=== PATIENT | male | born 1965 | race Caucasian/White ===

== ENCOUNTER 2020-12-03 20:09 | Emergency (ER) | payer OTHER ==
[~2020-12-03] VITALS: Ht 167.6 cm; Wt 70.3 kg
[2020-12-03 23:11] VITALS: BP 00/00
== END 2020-12-03 23:13 ==
LOC: EDBD 20:09 → M.ERS 20:09
DX: I46.9 Cardiac arrest, cause unspecified (principal); Z20.822 Contact with and (suspected) exposure to COVID-19